=== PATIENT | female | born 1995 | race Caucasian/White ===

== ENCOUNTER → 2023-10-22 | Outpatient (CLI) | payer BC | LOC: M WHC 11:39 | PROVIDERS: ATTEND Obstetrics & Gynecology | DX: Z30.430 Encounter for insertion of intrauterine contraceptive device (principal) ==

== ENCOUNTER → 2025-04-12 | Outpatient (CLI) | payer OTHER ==
[2025-04-12 14:44] LABS: CALCIUM LEVEL 8.6 MG/DL (8.5-10.1); CARBON DIOXIDE LEVEL 28 MMOL/L (20-31); CHLORIDE LEVEL 105 MMOL/L (98-107); CREATININE FOR GFR 0.85 MG/DL (0.55-1.30); GLOMERULAR FILTRATION RATE > 90.0 (>60); POTASSIUM SERUM 4.6 MMOL/L (3.5-5.1); SODIUM LEVEL 139 MMOL/L (136-145)
== END ==
LOC: M PLALAB 11:49
PROVIDERS: ATTEND Physician Assistant
DX: L70.9 Acne, unspecified (principal)